=== PATIENT | male | born 1945 | race Caucasian/White ===

== ENCOUNTER 2018-01-03 01:00 | Outpatient (CLI) | payer MEDICARE, SELFPAY ==
--- NOTE | 2018-01-03 14:05 | MERGE_ITS ---
*[facility]* *[facility]* [address] [place] [address] Date of study: 01/03/2018 Transthoracic Echocardiography M-mode, complete 2D, complete spectral Doppler, and color Doppler *STUDY CONCLUSIONS* Impressions: Left ventricular dysfunction, improved from the study of July 2017. Summary: 1. Procedure narrative: Intravenous contrast (Definity) was administered by griselda to enhance delineation of left ventricular endocardial borders. 2. Left ventricle: The cavity size was mildly dilated. Wall thickness was normal. Systolic function was moderately to severely reduced. The estimated ejection fraction was 30-35%. Diffuse hypokinesis with regional variations. Akinesis of the entireanteroseptal, inferoseptal, and apical myocardium. No evidence of thrombus. 3. Aortic valve: There was mild regurgitation. 4. Mitral valve: There was mild regurgitation. 5. Left atrium: The atrium was mildly dilated. 6. Right ventricle: The cavity size was dilated. Wall thickness was increased. Pacer wire noted in right ventricle. Systolic function was normal. 7. Right atrium: The atrium was dilated. 8. Pulmonary arteries: Pulmonary systolic pressure was severely increased, at least 65mm Hg to 70mm Hg. 9. Inferior vena cava: The vessel was patent and normal in size. The respirophasic diameter changes were in the normal range (greater than or equal to 50%). *PATIENT PRESENTATION* Height: 165.1cm ((65in) ) S/D Pressure: 120 / 63 Weight: 81.6kg ((179.6lb) ) BSA: 1.96m^2 Test start time: 02:20 PM. Test stop time: 03:40 PM. PERFORMING Unknown PERFORMING [facility] ORDERING Kyleigh Bauer Aprn REFERRING Kyleigh Bauer Aprn ABORIGINAL EDUCATION WORKER COORDINATOR Mago Butts, RT (R)(CT), RDCS REFERRING MattyKyleigh Rebekah *PROCEDURE DATA* Procedure information: The patient was identified by two identifiers. This study was interpreted by [facility]. Pertinent images and digital data are archived for permanent storage and are available for subsequent review. Comparison was made to the study of 08/31/2015. Study status: Routine. Transthoracic echocardiography. M-mode, complete 2D, complete spectral Doppler, and color Doppler. A Transthoracic Echocardiogram was performed. Scanning was performed from the parasternal, apical, subcostal, and suprasternal notch acoustic windows. Images were obtained using an [id number] cardiac ultrasound machine. Image quality was adequate. A 22 gauge IV was inserted by griselda. Intravenous contrast (Definity) was administered by griselda to enhance delineation of left ventricular endocardial borders. Prior to administration at least two (2) contiguous segments of the left ventricular border were not visualized. Definity amount administered was a total of 1ml. One vial was used. Study completion: The patient tolerated the procedure well. There were no complications. History: PMH: CAD Cardiomyopathy. MR. *CARDIAC ANATOMY* Left ventricle: The cavity size was mildly dilated. Wall thickness was normal. Systolic function was moderately to severely reduced. The estimated ejection fraction was 30-35%. Diffuse hypokinesis with regional variations. No evidence of thrombus. Regional wall motion abnormalities: Akinesis of the entireanteroseptal, inferoseptal, and apical myocardium. Aortic valve: Trileaflet; mildly thickened leaflets. Mobility was not restricted. Doppler: Transvalvular velocity was within the normal range. There was no stenosis. There was mild regurgitation. VTI ratio of LVOT to aortic valve: 0.75. Valve area (VTI): 2.4cm^2. Indexed valve area (VTI): 1.2cm^2/m^2. Peak velocity ratio of LVOT to aortic valve: 0.78. Valve area (Vmax): 2.5cm^2. Indexed valve area (Vmax): 1.3cm^2/m^2. Mean velocity ratio of LVOT to aortic valve: 0.73. Valve area (Vmean): 2.3cm^2. Indexed valve area (Vmean): 1.2cm^2/m^2. Mean gradient (S): 3.2mm Hg. Peak gradient (S): 5mm Hg. Aorta: Aortic root: The aortic root was normal in size. Ascending aorta: The ascending aorta was normal in size. Mitral valve: Mildly thickened leaflets. Mobility was not restricted. Doppler: Transvalvular velocity was within the normal range. There was no evidence for stenosis. There was mild regurgitation. Valve area by pressure half-time: 6.1cm^2. Indexed valve area by pressure half-time: 3.1cm^2/m^2. Peak gradient (D): 3.8mm Hg. Left atrium: The atrium was mildly dilated. Right ventricle: The cavity size was dilated. Wall thickness was increased. Pacer wire noted in right ventricle. Systolic function was normal. Pulmonic valve: Structurally normal valve. Doppler: Transvalvular velocity was within the normal range. There was no evidence for stenosis. There was mild regurgitation. Peak gradient (S): 3.2mm Hg. Tricuspid valve: Structurally normal valve. Doppler: Transvalvular velocity was within the normal range. There was no evidence for stenosis. There was mild regurgitation. Pulmonary artery: Pulmonary systolic pressure was severely increased, at least 65mm Hg to 70mm Hg. Right atrium: The atrium was dilated. Pericardium: There was no pericardial effusion. Systemic veins: Inferior vena cava: Well visualized. The vessel was patent and normal in size. The respirophasic diameter changes were in the normal range (greater than or equal to 50%). Baseline ECG: Paced rhythm. Measurements Left ventricle Value Reference LV ID, ED, PLAX 6.0 cm 3.5 - 6.0 LV ID, ES, PLAX (H) 4.9 cm 2.1 - 4.0 LV PW thickness, ED, PLAX 0.9 cm LV end-diastolic volume, 1-p A2C 114 ml LV ejection fraction, 1-p A2C 34 % LV end-diastolic volume, 1-p A4C 75 ml LV ejection fraction, 1-p A4C 33 % LV e', lateral 0.096 m/sec LV E/e', lateral 10 LV e', medial 0.038 m/sec LV E/e', medial 26 LV e', average 0.067 m/sec LV E/e', average 15 Ventricular septum Value Reference IVS thickness, ED, PLAX 0.9 cm LVOT Value Reference LVOT ID, A-P 2.0 cm LVOT area 3.2 cm^2 LVOT peak velocity, S 0.87 m/sec LVOT mean velocity, S 0.64 m/sec LVOT VTI, S 19.3 cm LVOT peak gradient, S 3 mm Hg LVOT mean gradient, S 1.8 mm Hg Stroke volume (SV), LVOT DP 61 ml Stroke index (SV/bsa), LVOT DP 31 ml/m^2 Aortic valve Value Reference Aortic valve peak velocity, S 1.1 m/sec Aortic valve mean velocity, S 0.87 m/sec Aortic valve VTI, S 25.8 cm Aortic mean gradient, S 3.2 mm Hg Aortic peak gradient, S 5 mm Hg VTI ratio, LVOT/AV 0.75 Aortic valve area, VTI 2.4 cm^2 Velocity ratio, peak, LVOT/AV 0.78 Aortic valve area, peak velocity 2.5 cm^2 Velocity ratio, mean, LVOT/AV 0.73 Aortic valve area, mean velocity 2.3 cm^2 Aortic valve area/bsa, mean velocity 1.2 cm^2/m^2 Aortic regurg deceleration 448 cm/s^2 Aortic regurg pressure half-time 230 ms Aorta Value Reference Aortic root ID, ED 3.7 cm Ascending aorta ID, A-P, S 3.2 cm RVOT Value Reference RVOT VTI, S 13.2 cm Left atrium Value Reference LA ID, A-P, ES 3.9 cm LA ID/bsa, A-P 2.0 cm/m^2 <=2.2 LA area, ES, A4C 21.2 cm^2 8.8 - 23.4 LA area, ES, A2C 21 cm^2 LA volume/bsa, ES, 1-p A4C 34 ml/m^2 LA volume, ES, 2-p 61 ml LA volume/bsa, ES, 2-p 31 ml/m^2 LA/aortic root ratio 1.06 Mitral valve Value Reference Mitral E-wave peak velocity 0.98 m/sec Mitral A-wave peak velocity 0.83 m/sec Mitral deceleration time (L) 124 ms 150 - 230 Mitral pressure half-time 36 ms Mitral peak gradient, D 3.8 mm Hg Mitral E/A ratio, peak 1.18 Mitral valve area, PHT, DP 6.1 cm^2 Pulmonary veins Value Reference Pulmonary vein peak velocity, S 0.55 m/sec Pulmonary vein peak velocity, D 0.52 m/sec Pulmonary vein velocity ratio, peak, 1.06 S/D Pulmonary vein A-wave reversal peak 0.28 m/sec velocity Tricuspid valve Value Reference Tricuspid regurg peak velocity 4.3 m/sec Tricuspid peak RV-RA gradient 72.4 mm Hg Right atrium Value Reference RA area, ES, A4C 18.3 cm^2 8.3 - 19.5 Pulmonic valve Value Reference Pulmonic peak gradient, S 3.2 mm Hg Legend: (L) and (H) dayne values outside specified reference range. I have personally reviewed the images and have reviewed and edited the reported findings. Electronically signed by Juan Parnell 01/03/2018 19:54
== END 2018-01-03 01:01 ==
PROVIDERS: PCP Family Medicine; Visit Provider Internal Medicine Cardiovascular Disease
DX: I25.10 Atherosclerotic heart disease of native coronary artery without angina pectoris (principal); I42.9 Cardiomyopathy, unspecified; I08.0 Rheumatic disorders of both mitral and aortic valves; Z95.5 Presence of coronary angioplasty implant and graft
CPT/HCPCS: C8929; 93306

== ENCOUNTER → 2018-03-08 10:01 | Outpatient (BNVA) | payer MEDICARE, SELFPAY | PROVIDERS: PCP Family Medicine; Visit Provider Internal Medicine Cardiovascular Disease | DX: I25.10 Atherosclerotic heart disease of native coronary artery without angina pectoris (principal); I25.5 Ischemic cardiomyopathy; Z95.0 Presence of cardiac pacemaker; I08.1 Rheumatic disorders of both mitral and tricuspid valves; N18.6 End stage renal disease; J90 Pleural effusion, not elsewhere classified | CPT/HCPCS: 99215 ==

== ENCOUNTER 2018-06-08 09:30 | Outpatient (CLI) | payer MEDICARE, SELFPAY ==
[2018-06-08 10:05] LABS: Anion Gap 12.6 mmol/L (3-11); CO2 26.4 mmol/L (21.0-32.0); Calcium 10.2 mg/dL (8.5-10.1); Chloride 95 mmol/L (98-107); Cholesterol 186 mg/dL (50-200); Estimated GFR 15.88 (mL/min/1.73m2); Glucose 138 mg/dL (70-100); HDL Cholesterol 55 mg/dL (40-60); LDL CHOLESTEROL 104 mg/dL (<100); Potassium 4.6 mmol/L (3.5-5.1); Sodium 134 mmol/L (136-145); Triglyceride 180 mg/dL (30-150)
[2018-06-08 10:51] LABS: BUN 82 mg/dL (7-18); CREATININE 3.78 mg/dL (0.70-1.30)
== END 2018-06-08 09:50 ==
PROVIDERS: PCP Family Medicine; Visit Provider Internal Medicine Cardiovascular Disease
DX: I25.5 Ischemic cardiomyopathy (principal); I25.10 Atherosclerotic heart disease of native coronary artery without angina pectoris; I08.1 Rheumatic disorders of both mitral and tricuspid valves; N18.6 End stage renal disease; J90 Pleural effusion, not elsewhere classified; I50.9 Heart failure, unspecified; Z95.0 Presence of cardiac pacemaker
CPT/HCPCS: 36415; 80048; 80061; 83721; 99214